=== PATIENT | female | born 1985 ===

== ENCOUNTER 2016-10-22 23:58 | Emergency (ER) | payer OTHER, MEDICAID ==
--- NOTE | 2016-10-23 00:17 | ED PDOC ---
Arrival/HPI - General Time Seen by Provider: 10/23/16 00:14 Historian: Patient - History of Present Illness Narrative History of Present Illness (Text): 10/23/16 00:17 Radha Jones is a 31 year old female, and currently 34 weeks 6 days , who presents to the Emergency department accompanied by spouse complaining of vaginal discharge. Patient states her water broke while at home 30 minutes prior to arrival. Patient denies any vaginal bleeding, dysuria, abdominal pain/cramping, nausea, vomiting, diarrhea, fever, chills, back pain, neck pain, headache, dizziness, chest pain, shortness of breath, or any other complaints. Time/Duration: 1/2 hour Symptom Onset: Sudden Symptom Course: Unchanged Activities at Onset: Rest, Light Context: Home Past Medical History - Provider Review Nursing Documentation Reviewed: Yes - Infectious Disease Hx of Infectious Diseases: None - Tetanus Immunization Tetanus Immunization: Unknown - Psychiatric Hx Substance Use: No - Surgical History Other/Comment: breast augmentation - Anesthesia Hx Anesthesia: Yes Hx Anesthesia Reactions: No Hx Malignant Hyperthermia: No Family/Social History - Physician Review Nursing Documentation Reviewed: Yes Family/Social History: No Known Family HX Smoking Status: Never Smoked Hx Alcohol Use: No Hx Substance Use: No Allergies/Home Meds Allergies/Adverse Reactions: Allergies No Known Allergies Allergy (Verified 10/23/16 00:35) Review of Systems - Physician Review All systems were reviewed & negative as marked: Yes - Review of Systems Constitutional: Normal. absent: Fevers Eyes: Normal ENT: Normal Respiratory: Normal. absent: SOB, Cough Cardiovascular: Normal. absent: Chest Pain Gastrointestinal: Normal. absent: Abdominal Pain, Diarrhea, Nausea, Vomiting Genitourinary Female: Vaginal Discharge. absent: Dysuria, Frequency, Hematuria , Urine Output Changes, Vaginal Bleeding Musculoskeletal: Normal. absent: Back Pain, Neck Pain Skin: Normal. absent: Rash Neurological: Normal. absent: Headache, Dizziness Endocrine: Normal Hemo/Lymphatic: Normal Psychiatric: Normal Physical Exam Vital Signs Reviewed: Yes Vital Signs Temp Pulse Resp BP Pulse Ox 10/23/16 01:08 98.0 F 96 H 18 134/74 100 10/23/16 00:36 98.2 F 109 H 18 134/75 100 Temperature: Afebrile Blood Pressure: Normal Pulse: Regular Respiratory Rate: Normal Appearance: Positive for: Well-Appearing, Non-Toxic, Comfortable Pain Distress: None Mental Status: Positive for: Alert and Oriented X 3 - Systems Exam Head: Present: Atraumatic, Normocephalic Pupils: Present: PERRL Extroacular Muscles: Present: EOMI Conjunctiva: Present: Normal Mouth: Present: Moist Mucous Membranes Neck: Present: Normal Range of Motion Respiratory/Chest: Present: Clear to Auscultation, Good Air Exchange. No: Respiratory Distress, Accessory Muscle Use Cardiovascular: Present: Regular Rate and Rhythm, Normal S1, S2. No: Murmurs Abdomen: Present: Distention (Distention consistent with gestational age), Normal Bowel Sounds. No: Tenderness, Peritoneal Signs Genitourinary/Pelvic Exam: Present: Normal External Genitalia, Other (RN Lynnette present as multimedia developer). No: Vaginal Bleeding, Cervical os Closed ( Cervix 1 cm dilated) Back: Present: Normal Inspection Upper Extremity: Present: Normal Inspection. No: Cyanosis, Edema Lower Extremity: Present: Normal Inspection. No: Edema Neurological: Present: GCS=15, CN II-XII Intact, Speech Normal Skin: Present: Warm, Dry, Normal Color. No: Rashes Psychiatric: Present: Alert, Oriented x 3, Normal Insight, Normal Concentration Medical Decision Making ED Course and Treatment: 10/23/16 00:17 Impression: 31 year old female complaining of vaginal discharge 30 minutes prior to arrival. Pt states her water broke. Plan: -- Heart Rate -- Reassess and disposition Prior Visits: Notes and results from previous visits were reviewed. Progress Notes: 10/23/16 00:[address] Odilia Brewster OBMAHAD cotton ball machine tender, who is aware and agrees with plan. Recommends transfer to [facility]. 10/23/16 00:36 RN reports heart rate: 142 bpm. [facility] paged. 10/23/16 00:[address] Odilia Rojo, [facility] cotton ball machine tender, who is aware and accepts pt on transfer to Labor and Delivery. Based upon the information available at the time of transfer, the medical benefits reasonably expected from the provision of medical treatment at [facility] outweigh the increased risk to the patient for transfer from this facility. I have described the inherent risks and benefits of the transfer to the patient, and patient agrees to transfer. I have spoken to Dr. Odilia Rojo, [facility] cotton ball machine tender, who has agreed to accept transfer of the patient and provide further medical treatment at the receiving facility. At the time of transfer, copies of all medical records sent which related to the emergency condition for which the individual presented. These records include observations of signs or symptoms, preliminary clinical impression, treatment provided, results of any completed test and an informed written consent to the transfer. 10/23/16 01:11 Pt taken by EMS for transfer. Pt in stable condition, no acute distress. - Scribe Statement The provider has reviewed the documentation as recorded by the Fernando Cochran Provider Attestation: All medical record entries made by the Scribe were at my direction and personally dictated by me. I have reviewed the chart and agree that the record accurately reflects my personal performance of the history, physical exam, medical decision making, and the department course for this patient. I have also personally directed, reviewed, and agree with the discharge instructions and disposition. Disposition/Present on Arrival - Present on Arrival Any Indicators Present on Arrival: No History of DVT/PE: No History of Uncontrolled Diabetes: No Urinary Catheter: No History Surgical Site Infection Following: None - Disposition Have Diagnosis and Disposition been Completed?: Yes Diagnosis: Third trimester , Rupture of membranes with clear amniotic fluid Disposition: Transfer [facility] Disposition Time: 01:07 Condition: GOOD
[2016-10-23 00:37] VITALS: RESP 18; O2SAT 100
[2016-10-23 01:10] VITALS: BP 134/74; PULSE 96; TEMP 98
[2016-10-23 02:19] VITALS: BMI 30.2
== END 2016-10-23 01:10 | disposition short-term general hospital (02) ==
LOC: ED 23:58
DX: O42.913 Preterm premature rupture of membranes, unspecified as to length of time between rupture and onset of labor, third trimester (principal); Z3A.34 34 weeks gestation of pregnancy